=== PATIENT | female | born 1955 | race Caucasian/White ===

== ENCOUNTER 2023-04-15 10:48 | Day surgery (SDC) | payer MEDICARE ==
[2023-04-10 12:43] LABS: BASOPHILS % (AUTO) 0.5 % (0-1); EOSINOPHILS # (AUTO) 0.1 X10'3 (0-0.9); EOSINOPHILS % (AUTO) 1.1 % (0-6); LYMPHOCYTES # (AUTO) 1.7 X10'3 (1.1-4.8); LYMPHOCYTES % (AUTO) 31.6 % (21-51); MEAN CORPUSCULAR HEMOGLOBIN 30.7 PG (27.0-31.0); MEAN CORPUSCULAR VOLUME 90.4 FL (78-98); MEAN PLATELET VOLUME 8.8 FL (7.4-10.4); MONOCYTES # (AUTO) 0.4 X10'3 (0-0.9); MONOCYTES % (AUTO) 7.3 % (2-12); NEUTROPHILS # (AUTO) 3.1 X10'3 (1.8-7.7); NEUTROPHILS % (AUTO) 59.5 % (42-75); PRE OP HEMATOCRIT 40.9 % (35.0-45.0); PRE OP HEMOGLOBIN 13.9 g/dL (12.0-16.0); PRE OP PLATELET COUNT 236 X10'3 (140-440); PRE OP WHITE BLOOD COUNT 5.3 10'3 (4.8-10.8); RED BLOOD COUNT 4.53 X10'6 (4.20-5.60); RED CELL DISTRIBUTION WIDTH 13.1 % (11.5-14.5)
[2023-04-10 13:00] LABS: ALBUMIN 4.6 G/DL (3.4-5.0); ALBUMIN/GLOBULIN RATIO 1.4 (1.1-1.5); ALKALINE PHOSPHATASE 61 IU/L (46-116); BLOOD UREA NITROGEN 16 MG/DL (7-18); CHLORIDE 103 MMOL/L (99-107); CREATININE 0.94 MG/DL (0.40-0.90); PRE OP ALT 28 U/L (30-65); PRE OP ANION GAP 11 (8-16); PRE OP AST 19 U/L (10-37); PRE OP BILIRUB, TOTAL 0.8 MG/DL (0.0-1.0); PRE OP GLUCOSE 99 MG/DL (70-104); PRE OP POTASSIUM 3.7 MMOL/L (3.4-5.1); PRE OP SODIUM 140 MMOL/L (135-145); TOTAL CARBON DIOXIDE 25.6 MMOL/L (24-32); eGFR 59 ML/MIN
[~2023-04-15] VITALS: Ht 152.4 cm; Wt 77.5 kg
[2023-04-15] VITALS (21 sets, daily range): BP systolic 102–140; BP diastolic 54–71; PULSE 48–67; RESP 10–25; TEMP 98.3; O2SAT 88–99
[~2023-04-15 10:48] MED LIST: ACET-2971 PO; ADV50500 INH; ALBU18HF2 INH; AMLO5TAB16 PO; BUPIVAcaine/PF 2.5mg/ml (0.25%) 10ml vial ONE; CETI10CA PO; DOCUMENT DATE & TIME OF BETA-BLOCKER PO ONE; LIDOcaine 1% (10mg/ml) 2ml vial ONE; LIDOcaine 2% (20mg/ml) 5ml vial ONE; LOSA1TAB39 PO; ROSU10TA28 PO; SOTA80TA PO; VIT D; cefazolin 2gm/D5W 100mL 100 ML IV ONE; famotidine 20mg tablet PO ONE; ringers solution, lacted 1,000 ML IV SCH
[2023-04-15] MEDS ORDERED: LIDOcaine 1% (10mg/ml) 2ml vial ONE (11:45)
[2023-04-15] MEDS ORDERED: BUPIVAcaine/PF 2.5mg/ml (0.25%) 10ml vial ONE (11:46)
[2023-04-15] MEDS ORDERED: aprepitant 40mg capsule PO ONE (12:01)
[2023-04-15] MEDS ORDERED: ringers solution, lacted 1,000 ML IV SCH (12:05)
[2023-04-15] MEDS ORDERED: labetalol 20mg/4ml (5mg/ml) syringe IV PRN (12:05)
[2023-04-15] MEDS ORDERED: acetaminophen 1,000mg/100ml IV 100 ML IV ONE (12:05)
[2023-04-15] MEDS ORDERED: proCHLORperazine 10 MG/2 ml inj IV PRN (12:05)
[2023-04-15] MEDS ORDERED: ondansetron/PF 4mg/2ml inj IV PRN (12:05)
[2023-04-15] MEDS ORDERED: ketorolac tromethamine 15mg/ml inj. IV ONE (12:05)
[2023-04-15] MEDS ORDERED: hydrALAZINE 20mg/ml inj. IV PRN (12:05)
[2023-04-15] MEDS ORDERED: HYDROmorphone/PF 0.2 MG/ML SYRINGE IV PRN ×2 (12:05)
[2023-04-15] MEDS ORDERED: meperidine/PF 25mg/ml syringe IV PRN ×2 (12:05)
[2023-04-15] MEDS ORDERED: sevoflurane 250ml liquid IH ONE (12:10)
[2023-04-15] MEDS ORDERED: midazolam 1 mg/ML 2ml injection ONE (12:12)
[2023-04-15] MEDS ORDERED: fentaNYL /PF 50mcg/ml 5ml ampule ONE (12:24)
[2023-04-15] MEDS ORDERED: propofol inj 20 ML IV ONE ×4 (12:29→12:30)
[2023-04-15] MEDS ORDERED: LIDOcaine 2% (20mg/ml) 5ml vial ONE (12:29)
[2023-04-15] MEDS ORDERED: ondansetron/PF 4mg/2ml inj ONE (12:30)
[2023-04-15] MEDS ORDERED: dexamethasone sod phosphate 4mg/ml inj. ONE (12:30)
[2023-04-15] MEDS ORDERED: triamcinolone acetonide 40mg/ml inj ONE (12:33)
[2023-04-15] MEDS ORDERED: LIDOcaine 1% (10mg/ml)w/preservative inj. 20ml MDV ONE (12:33)
[2023-04-15] MEDS ORDERED: triamcinolone acetonide 40mg/ml inj IM ONE (12:47)
[2023-04-15] MEDS: meperidine/PF 25mg/ml syringe IV PRN ×2 (14:06→14:19)
[2023-04-15] MEDS ORDERED: HYDROcodone/acetaminophen 5mg/325mg tablet PO ONE (14:55)
== END 2023-04-15 17:29 | disposition home or self-care (01) ==
LOC: PRE-OP 10:48
PROVIDERS: ATTEND Orthopaedic Surgery Hand Surgery
DX: G56.03 Carpal tunnel syndrome, bilateral upper limbs (principal); G56.21 Lesion of ulnar nerve, right upper limb; M72.0 Palmar fascial fibromatosis [Dupuytren]; M67.441 Ganglion, right hand; M67.431 Ganglion, right wrist; M65.331 Trigger finger, right middle finger; M65.341 Trigger finger, right ring finger; M65.351 Trigger finger, right little finger; M18.12 Unilateral primary osteoarthritis of first carpometacarpal joint, left hand; M65.342 Trigger finger, left ring finger; M65.332 Trigger finger, left middle finger; J45.909 Unspecified asthma, uncomplicated; E78.00 Pure hypercholesterolemia, unspecified; M81.0 Age-related osteoporosis without current pathological fracture; M85.80 Other specified disorders of bone density and structure, unspecified site; G47.33 Obstructive sleep apnea (adult) (pediatric); I12.9 Hypertensive chronic kidney disease with stage 1 through stage 4 chronic kidney disease, or unspecified chronic kidney disease; N18.9 Chronic kidney disease, unspecified; Z88.1 Allergy status to other antibiotic agents; Z88.5 Allergy status to narcotic agent; Z91.048 Other nonmedicinal substance allergy status; Z87.891 Personal history of nicotine dependence; Z72.89 Other problems related to lifestyle; Z98.890 Other specified postprocedural states; Z90.710 Acquired absence of both cervix and uterus; Z90.13 Acquired absence of bilateral breasts and nipples; Z82.3 Family history of stroke; Z83.3 Family history of diabetes mellitus
CPT/HCPCS: 20526; 20550; 20600; 25111; 26055; 26121; 26160; 36415; 64718; 64721; 80053; 82948; 85025; J0131; J0690; J1100; J1885; J2175; J2250; J2405; J2704; J3010; J3301; J3490; J7030; J7120; J8501; Z7506; Z7508; Z7512; A4215; A6449

== ENCOUNTER 2023-05-13 07:56 | Day surgery (SDC) | payer MEDICARE ==
[2023-05-08 16:38] LABS: BASOPHILS % (AUTO) 0.2 % (0-1); EOSINOPHILS % (AUTO) 0.5 % (0-6); LYMPHOCYTES # (AUTO) 1.7 X10'3 (1.1-4.8); LYMPHOCYTES % (AUTO) 19.6 % (21-51); MEAN CORPUSCULAR HEMOGLOBIN 30.9 PG (27.0-31.0); MEAN CORPUSCULAR HGB CONC 33.8 g/dL (33.0-36.5); MEAN CORPUSCULAR VOLUME 91.4 FL (78-98); MEAN PLATELET VOLUME 9.4 FL (7.4-10.4); MONOCYTES # (AUTO) 0.8 X10'3 (0-0.9); MONOCYTES % (AUTO) 9.5 % (2-12); NEUTROPHILS % (AUTO) 70.2 % (42-75); PRE OP HEMATOCRIT 42.1 % (35.0-45.0); PRE OP HEMOGLOBIN 14.2 g/dL (12.0-16.0); PRE OP PLATELET COUNT 266 X10'3 (140-440); PRE OP WHITE BLOOD COUNT 8.6 10'3 (4.8-10.8); RED BLOOD COUNT 4.61 X10'6 (4.20-5.60); RED CELL DISTRIBUTION WIDTH 13.9 % (11.5-14.5)
[2023-05-08 17:00] LABS: ALBUMIN 4.7 G/DL (3.4-5.0); ALBUMIN/GLOBULIN RATIO 1.4 (1.1-1.5); ALKALINE PHOSPHATASE 60 IU/L (46-116); BLOOD UREA NITROGEN 32 MG/DL (7-18); BUN/CREATININE RATIO 24.2 (10.0-20.0); CALCIUM 9.9 MG/DL (8.5-10.1); CHLORIDE 100 MMOL/L (99-107); CREATININE 1.32 MG/DL (0.40-0.90); PRE OP ALT 21 U/L (30-65); PRE OP ANION GAP 13 (8-16); PRE OP AST 18 U/L (10-37); PRE OP BILIRUB, TOTAL 0.9 MG/DL (0.0-1.0); PRE OP GLUCOSE 89 MG/DL (70-104); PRE OP POTASSIUM 3.9 MMOL/L (3.4-5.1); PRE OP SODIUM 138 MMOL/L (135-145); TOTAL CARBON DIOXIDE 25.3 MMOL/L (24-32); TOTAL PROTEIN 8.1 G/DL (6.4-8.2); eGFR 40 ML/MIN
[2023-05-13] VITALS (17 sets, daily range): BP systolic 104–135; BP diastolic 60–79; PULSE 59–74; RESP 11–31; TEMP 98.3; O2SAT 92–99
[~2023-05-13] VITALS: Ht 152.4 cm; Wt 75.6 kg
[2023-05-13] MEDS: cefazolin 2gm/D5W 100mL 100 ML IV ONE (05:30)
[~2023-05-13 07:56] MED LIST changes: -BUPIVAcaine/PF 2.5mg/ml (0.25%) 10ml vial ONE; -LIDOcaine 1% (10mg/ml) 2ml vial ONE; -LIDOcaine 2% (20mg/ml) 5ml vial ONE; -VIT D; +VIT D PO; +albuterol 2.5 MG/3 ML nebule NEB ONE; +albuterol 2.5 MG/3 ML nebule NEB PRN; -cefazolin 2gm/D5W 100mL 100 ML IV ONE; -famotidine 20mg tablet PO ONE; -ringers solution, lacted 1,000 ML IV SCH
[2023-05-13] MEDS: famotidine 20mg tablet PO ONE (08:35)
[2023-05-13] MEDS: ringers solution, lacted 1,000 ML IV SCH (08:36)
[2023-05-13] MEDS: aprepitant 40mg capsule PO ONE (09:22)
[2023-05-13] MEDS ORDERED: sevoflurane 250ml liquid IH ONE (11:01)
[2023-05-13] MEDS ORDERED: fentaNYL/PF 50MCG/1 ML 2ML syringe ONE (11:10)
[2023-05-13] MEDS ORDERED: midazolam 1 mg/ML 2ml injection ONE (11:14)
[2023-05-13] MEDS ORDERED: propofol inj 20 ML IV ONE ×3 (11:18)
[2023-05-13] MEDS ORDERED: dexamethasone sod phosphate 4mg/ml inj. ONE (11:19)
[2023-05-13] MEDS ORDERED: LIDOcaine 2% (20mg/ml) 5ml vial ONE (11:19)
[2023-05-13] MEDS ORDERED: ondansetron/PF 4mg/2ml inj ONE (11:19)
[2023-05-13] MEDS ORDERED: 0.9 % SODIUM CHLORIDE 10 ML VIAL ONE (11:29)
[2023-05-13] MEDS ORDERED: ePHEDrine 50MG/ML INJ. ONE (11:29)
[2023-05-13] MEDS ORDERED: BUPIVAcaine/PF 2.5mg/ml (0.25%) 10ml vial ONE (11:32)
[2023-05-13] MEDS: BUPIVAcaine/PF 2.5mg/ml (0.25%) 10ml vial IJ ONE (11:36)
[2023-05-13] MEDS: LIDOcaine 2% (20mg/ml) 5ml vial ONE ×2 (11:37)
[2023-05-13] MEDS ORDERED: proCHLORperazine 10 MG/2 ml inj IV PRN (12:10)
[2023-05-13] MEDS ORDERED: hydrALAZINE 20mg/ml inj. IV PRN (12:10)
[2023-05-13] MEDS ORDERED: fentaNYL/PF 50MCG/1 ML 2ML syringe IV PRN ×2 (12:10)
[2023-05-13] MEDS ORDERED: ondansetron/PF 4mg/2ml inj IV PRN (12:10)
[2023-05-13] MEDS ORDERED: labetalol 20mg/4ml (5mg/ml) syringe IV PRN (12:10)
[2023-05-13] MEDS ORDERED: ringers solution, lacted 1,000 ML IV SCH (12:10)
[2023-05-13] MEDS ORDERED: meperidine/PF 25mg/ml syringe IV PRN (12:10)
[2023-05-13] MEDS: HYDROmorphone/PF 0.2 MG/ML SYRINGE IV PRN ×2 (12:26→12:39)
[2023-05-13] MEDS: ketorolac tromethamine 15mg/ml inj. IV ONE (12:38)
[2023-05-13] MEDS: acetaminophen 1,000mg/100ml IV 100 ML IV ONE (12:38)
== END 2023-05-13 15:46 | disposition home or self-care (01) ==
LOC: PAS 07:56
PROVIDERS: ATTEND Orthopaedic Surgery Hand Surgery
DX: G56.02 Carpal tunnel syndrome, left upper limb (principal); G56.22 Lesion of ulnar nerve, left upper limb; M72.0 Palmar fascial fibromatosis [Dupuytren]; M24.0 Loose body in joint; M65.322 Trigger finger, left index finger; M65.332 Trigger finger, left middle finger; M65.352 Trigger finger, left little finger; M65.342 Trigger finger, left ring finger; I12.9 Hypertensive chronic kidney disease with stage 1 through stage 4 chronic kidney disease, or unspecified chronic kidney disease; N18.9 Chronic kidney disease, unspecified; J44.9 Chronic obstructive pulmonary disease, unspecified; G47.33 Obstructive sleep apnea (adult) (pediatric); Z87.891 Personal history of nicotine dependence; Z79.899 Other long term (current) drug therapy; Z90.13 Acquired absence of bilateral breasts and nipples; Z90.49 Acquired absence of other specified parts of digestive tract; Z90.710 Acquired absence of both cervix and uterus; Z98.890 Other specified postprocedural states; Z88.5 Allergy status to narcotic agent; Z88.1 Allergy status to other antibiotic agents; Z88.8 Allergy status to other drugs, medicaments and biological substances; Z83.3 Family history of diabetes mellitus; Z80.9 Family history of malignant neoplasm, unspecified
CPT/HCPCS: 26055; 26070; 26121; 36415; 64718; 64721; 80053; 82948; 85025; J0131; J0690; J1100; J1170; J1885; J2250; J2405; J2704; J3010; J3490; J7030; J7040; J7120; J8501; Z7506; Z7508; Z7512; A4215; A4618; A6449

== ENCOUNTER 2023-06-25 11:32 | Outpatient (CLI) | payer MEDICARE ==
[~2023-06-25 11:32] MED LIST changes: -DOCUMENT DATE & TIME OF BETA-BLOCKER PO ONE; -albuterol 2.5 MG/3 ML nebule NEB ONE; -albuterol 2.5 MG/3 ML nebule NEB PRN
[2023-06-25 12:25] LABS: BASOPHILS % (AUTO) 0.4 % (0-1); EOSINOPHILS % (AUTO) 0.5 % (0-6); HEMATOCRIT 36.9 % (35.0-45.0); HEMOGLOBIN 12.7 g/dl (12.0-16.0); LYMPHOCYTES # (AUTO) 1.6 X10'3 (1.1-4.8); LYMPHOCYTES % (AUTO) 26.8 % (21-51); MEAN CORPUSCULAR HEMOGLOBIN 31.8 PG (27.0-31.0); MEAN CORPUSCULAR HGB CONC 34.4 g/dL (33.0-36.5); MEAN CORPUSCULAR VOLUME 92.3 FL (78-98); MEAN PLATELET VOLUME 8.9 FL (7.4-10.4); MONOCYTES # (AUTO) 0.5 X10'3 (0-0.9); MONOCYTES % (AUTO) 7.9 % (2-12); NEUTROPHILS # (AUTO) 3.8 X10'3 (1.8-7.7); NEUTROPHILS % (AUTO) 64.4 % (42-75); PLATELET COUNT 274 X10'3 (140-440); RED CELL DISTRIBUTION WIDTH 14.6 % (11.5-14.5); WHITE BLOOD COUNT 5.8 X10'3 (4.5-11.0)
[2023-06-25 12:33] LABS: BILIRUBIN,URINE NEGATIVE (Neg); CLARITY,URINE CLEAR (Clear); COLOR,URINE STRAW (Yellow); GLUCOSE, URINE NEGATIVE (Neg); KETONES,URINE NEGATIVE (Neg); LEUKOCYTE ESTERASE ,URINE NEGATIVE (Neg); NITRITES, URINE NEGATIVE (Neg); OCCULT BLOOD,URINE NEGATIVE (Neg); PROTEIN,URINE NEGATIVE (Neg); UROBILINOGEN,URINE 0.2 E.U/dL (0.2-1.0)
[2023-06-25 12:37] LABS: TOTAL PROTEIN,URINE RANDOM < 6.0 MG/DL
[2023-06-25 12:53] LABS: UA COLLECTION TYPE CLN CATCH MIDSTREAM
[2023-06-25 13:09] LABS: ANION GAP 11 (8-16); BLOOD UREA NITROGEN 18 MG/DL (7-18); BUN/CREATININE RATIO 20.9 (10.0-20.0); CHLORIDE 105 MMOL/L (99-107); CREATININE 0.86 MG/DL (0.40-0.90); GLUCOSE 95 MG/DL (70-104); PHOSPHORUS 3.7 MG/DL (2.3-4.5); SODIUM 140 MMOL/L (135-145); TOTAL CARBON DIOXIDE 24.5 MMOL/L (24-32); eGFR 66 ML/MIN
[2023-06-25 13:40] LABS: FERRITIN 135 NG/ML (8-252)
[2023-06-25 14:07] LABS: % IRON SATURATION 19 % (11-46); IRON 66 UG/DL (49-151); TOTAL IRON BINDING CAPACITY 351 UG/DL (259-388)
== END 2023-06-25 23:59 | disposition home or self-care (01) ==
LOC: LAB 11:32
PROVIDERS: ATTEND Nurse Practitioner Adult Health
DX: N18.2 Chronic kidney disease, stage 2 (mild) (principal); D63.1 Anemia in chronic kidney disease; N39.0 Urinary tract infection, site not specified; R94.4 Abnormal results of kidney function studies; E55.9 Vitamin D deficiency, unspecified; D50.8 Other iron deficiency anemias; R80.9 Proteinuria, unspecified
CPT/HCPCS: 36415; 80069; 81003; 82306; 82570; 82728; 83540; 83550; 83735; 83970; 84156; 85025; 87088

== ENCOUNTER 2024-06-08 06:57 | Day surgery (SDC) | payer MEDICARE ==
[2024-06-04 14:24] LABS: BASOPHILS % (AUTO) 0.3 % (0-1); EOSINOPHILS # (AUTO) 0.1 X10'3 (0-0.9); EOSINOPHILS % (AUTO) 0.9 % (0-6); LYMPHOCYTES # (AUTO) 1.6 X10'3 (1.1-4.8); LYMPHOCYTES % (AUTO) 26.2 % (21-51); MEAN CORPUSCULAR HEMOGLOBIN 29.4 PG (27.0-31.0); MEAN CORPUSCULAR HGB CONC 33.1 g/dL (33.0-36.5); MEAN CORPUSCULAR VOLUME 88.8 FL (78-98); MEAN PLATELET VOLUME 8.8 FL (7.4-10.4); MONOCYTES # (AUTO) 0.5 X10'3 (0-0.9); MONOCYTES % (AUTO) 7.9 % (2-12); NEUTROPHILS # (AUTO) 3.9 X10'3 (1.8-7.7); NEUTROPHILS % (AUTO) 64.7 % (42-75); PRE OP HEMATOCRIT 41.9 % (35.0-45.0); PRE OP HEMOGLOBIN 13.9 g/dL (12.0-16.0); PRE OP PLATELET COUNT 270 X10'3 (140-440); PRE OP WHITE BLOOD COUNT 6.1 10'3 (4.8-10.8); RED BLOOD COUNT 4.72 X10'6 (4.20-5.60); RED CELL DISTRIBUTION WIDTH 14.2 % (11.5-14.5)
[2024-06-04 14:34] LABS: ALBUMIN 4.5 G/DL (3.4-5.0); ALBUMIN/GLOBULIN RATIO 1.4 (1.1-1.5); ALKALINE PHOSPHATASE 63 IU/L (46-116); BLOOD UREA NITROGEN 16 MG/DL (7-18); BUN/CREATININE RATIO 16.3 (10.0-20.0); CALCIUM 9.7 MG/DL (8.5-10.1); CHLORIDE 106 MMOL/L (99-107); CREATININE 0.98 MG/DL (0.40-0.90); PRE OP ALT 30 U/L (30-65); PRE OP ANION GAP 9 (8-16); PRE OP AST 22 U/L (10-37); PRE OP BILIRUB, TOTAL 0.5 MG/DL (0.0-1.0); PRE OP GLUCOSE 95 MG/DL (70-104); PRE OP POTASSIUM 3.9 MMOL/L (3.4-5.1); PRE OP SODIUM 143 MMOL/L (135-145); TOTAL CARBON DIOXIDE 27.9 MMOL/L (24-32); TOTAL PROTEIN 7.7 G/DL (6.4-8.2); eGFR 56 ML/MIN
[2024-06-08] VITALS (14 sets, daily range): BP systolic 117–136; BP diastolic 64–114; PULSE 59–80; RESP 9–22; TEMP 97.8; O2SAT 93–98
[~2024-06-08] VITALS: Ht 152.4 cm; Wt 75.6 kg
[2024-06-08] MEDS: DOCUMENT DATE & TIME OF BETA-BLOCKER PO ONE (05:30)
[2024-06-08] MEDS: ceFAZolin 2gm in dextrose, iso 50 ML IV ONE (05:30)
[~2024-06-08 06:57] MED LIST changes: -ADV50500 INH; +FLUT1BLS7 INH; +METO-384 PO; -ROSU10TA28 PO; +ROSU10TA72 PO; -SOTA80TA PO; -VIT D PO
[2024-06-08] MEDS ORDERED: BUPIVAcaine/PF 2.5mg/ml (0.25%) 10ml vial ONE ×2 (07:56→12:47)
[2024-06-08] MEDS ORDERED: LIDOcaine 2% (20mg/ml) 5ml vial ONE (07:56)
[2024-06-08] MEDS: ringers solution, lacted 1,000 ML IV SCH (08:27)
[2024-06-08] MEDS: famotidine 20mg tablet PO ONE (08:27)
[2024-06-08] MEDS ORDERED: propofol inj 20 ML IV ONE (09:11)
[2024-06-08] MEDS ORDERED: midazolam 1 mg/ML 2ml injection ONE (09:11)
[2024-06-08] MEDS ORDERED: LIDOcaine 1%/PF 5ML 10 MG/ML VIAL ONE (09:11)
[2024-06-08] MEDS ORDERED: fentaNYL/PF 50MCG/1 ML 2ML syringe ONE ×2 (09:11→10:05)
[2024-06-08] MEDS ORDERED: sevoflurane 250ml liquid IH ONE (09:40)
[2024-06-08] MEDS ORDERED: triamcinolone acetonide 40mg/ml inj ONE (09:58)
[2024-06-08] MEDS ORDERED: ondansetron/PF 4mg/2ml inj ONE (10:13)
[2024-06-08] MEDS ORDERED: dexamethasone sod phosphate 4mg/ml inj. ONE (10:13)
[2024-06-08] MEDS ORDERED: ePHEDrine 50MG/ML INJ. ONE (10:13)
[2024-06-08] MEDS: triamcinolone acetonide 40mg/ml inj IJ ONE (10:19)
[2024-06-08] MEDS ORDERED: acetaminophen 1,000mg/100ml IV 100 ML IV ONE (10:57)
[2024-06-08] MEDS ORDERED: ringers solution, lacted 1,000 ML IV SCH (11:10)
[2024-06-08] MEDS ORDERED: enalaprilat 1.25mg/ml 2ml vial IV PRN (11:10)
[2024-06-08] MEDS ORDERED: proCHLORperazine 10 MG/2 ml inj IV PRN (11:10)
[2024-06-08] MEDS ORDERED: labetalol 20mg/4ml (5mg/ml) syringe IV PRN (11:10)
[2024-06-08] MEDS ORDERED: meperidine/PF 25mg/ml syringe IV PRN ×3 (11:10)
[2024-06-08] MEDS ORDERED: ondansetron/PF 4mg/2ml inj IV PRN (11:10)
[2024-06-08] MEDS: fentaNYL/PF 50MCG/1 ML 2ML syringe IV STA (11:15)
[2024-06-08] MEDS: fentaNYL/PF 50MCG/1 ML 2ML syringe ONE (11:16)
[2024-06-08] MEDS: ketorolac trometh 30MG/ML vial 30 MG/ML VIAL IV ONE (11:18)
[2024-06-08] MEDS ORDERED: fentaNYL/PF 50MCG/1 ML 2ML syringe IV PRN (11:20)
[2024-06-08] MEDS: fentaNYL/PF 50MCG/1 ML 2ML syringe IV PRN (11:23)
[2024-06-08] MEDS: meperidine/PF 25mg/ml syringe IV STA (11:24)
[2024-06-08] MEDS: oxyCODONE/APAP 10/325mg tablet PO STA (12:11)
== END 2024-06-08 13:23 | disposition home or self-care (01) ==
LOC: PAS 06:57
PROVIDERS: ATTEND Orthopaedic Surgery Hand Surgery
DX: G56.22 Lesion of ulnar nerve, left upper limb (principal); M72.0 Palmar fascial fibromatosis [Dupuytren]; M18.12 Unilateral primary osteoarthritis of first carpometacarpal joint, left hand; I12.9 Hypertensive chronic kidney disease with stage 1 through stage 4 chronic kidney disease, or unspecified chronic kidney disease; N18.9 Chronic kidney disease, unspecified; E78.5 Hyperlipidemia, unspecified; M25.322 Other instability, left elbow; Z79.899 Other long term (current) drug therapy; Z87.891 Personal history of nicotine dependence; Z98.890 Other specified postprocedural states; Z90.13 Acquired absence of bilateral breasts and nipples; Z90.710 Acquired absence of both cervix and uterus; Z88.6 Allergy status to analgesic agent; Z88.8 Allergy status to other drugs, medicaments and biological substances; M19.90 Unspecified osteoarthritis, unspecified site
CPT/HCPCS: 20600; 26121; 36415; 64718; 80053; 82948; 85025; A4215; A4618; A6402; A6446; A6449; A7000; J0131; J0690; J1100; J1885; J2250; J2405; J2704; J3010; J3301; J3490; J7030; J7120; Z7506; Z7508; Z7512; Z7610; J2003